=== PATIENT | female | born 1975 | race African-American/Black ===

== ENCOUNTER 2021-12-22 08:12 | Day surgery (SDC) | payer OTHER ==
[2021-12-18 11:45] VITALS: BMI 39.6
[2021-12-22] MEDS ORDERED: LIDOCAINE HCL/PF 2% SDV 5ML VIAL ONE (09:11)
[2021-12-22] MEDS ORDERED: PROPOFOL 20 ML ONE (09:11)
[2021-12-22 10:24] VITALS: TEMP 98
[2021-12-22 10:54] VITALS: BP 128/68; PULSE 75
== END 2021-12-22 10:46 | disposition home or self-care (01) ==
LOC: FASU-ENDO 08:12
PROVIDERS: ATTEND Internal Medicine Gastroenterology
PROC: 0DJD8ZZ Inspection of Lower Intestinal Tract, Via Natural or Artificial Opening Endoscopic (ICD-10-PCS; principal; 2021-12-22 09:40)
DX: Z12.11 Encounter for screening for malignant neoplasm of colon (principal); K57.30 Diverticulosis of large intestine without perforation or abscess without bleeding